=== PATIENT | female | born 1960 | race Caucasian/White ===

== ENCOUNTER → 2018-11-23 | Outpatient (CLI) | payer OTHER ==
--- NOTE | 2018-11-23 10:43 | US ---
EXAMINATION TYPE: US abdomen complete DATE OF EXAM: 11/23/2018 COMPARISON: US 12/05/11 CLINICAL HISTORY: R10.31 abd pain, R10.32. Abdominal pain when sitting. EXAM MEASUREMENTS: Liver Length: 15.2 cm Gallbladder Wall: 0.8 cm CBD: 0.5 cm Spleen: 7.9 cm Right Kidney: 10.0 x 4.8 x 3.9 cm Left Kidney: 10.1 x 4.8 x 4.8 cm Pancreas: Partially Obscured by bowel gas Liver: Increased attenuation Gallbladder: wnl Evidence for sonographic Ureña's sign: No CBD: Upper normal for size Spleen: wnl Right Kidney: wnl Left Kidney: wnl Upper IVC: wnl Abd Aorta: wnl The visualized liver is heterogeneously hyperechoic. Evaluation for focal masses is suboptimal due to the heterogeneity. Suspect mild diffuse fatty infiltration. The intrahepatic portion of the IVC and visualized abdominal aorta are within normal limits. There is no evidence of cholelithiasis. Common bile duct is unremarkable. The visualized portions of the pancreas are homogenous. The spleen is u nremarkable. Kidneys are symmetric and free of hydronephrosis. No suspicious renal lesions are seen . IMPRESSION: No acute finding identified to account for patient's symptoms
== END | disposition home or self-care (01) ==
LOC: RADUSWWP 07:42
PROVIDERS: ATTEND Internal Medicine
DX: R10.31 Right lower quadrant pain (principal); R10.32 Left lower quadrant pain
CPT/HCPCS: 76700

== ENCOUNTER → 2018-12-30 | Outpatient (CLI) | payer OTHER ==
--- NOTE | 2019-01-03 10:27 | MM ---
Reason for exam: screening (asymptomatic). Last mammogram was performed 8 years and 4 months ago. History: Patient is postmenopausal. Family history of breast cancer in sister. Physical Findings: A clinical breast exam by your physician is recommended on an annual basis and results should be correlated with mammographic findings. MG Screening Mammo w CAD Bilateral CC and MLO view(s) were taken. Prior study comparison: August 16, 2010, bilateral digital screening mammo w/CAD. August 17, 2009, bilateral digital screening mammogram. There are scattered fibroglandular densities. There is chronic nodularity in the right breast. No significant changes when compared with prior studies. ASSESSMENT: Benign, BI-RAD 2 RECOMMENDATION: Routine screening mammogram of both breasts in 1 year.
== END | disposition home or self-care (01) ==
LOC: RADMAMWWP 15:03
PROVIDERS: ATTEND Internal Medicine
DX: Z12.31 Encounter for screening mammogram for malignant neoplasm of breast (principal)
CPT/HCPCS: 77067

== ENCOUNTER → 2023-04-17 | Outpatient (CLI) | payer OTHER ==
--- NOTE | 2023-04-21 10:18 | MM ---
Reason for Exam: Screening (asymptomatic). Last mammogram was performed 4 year(s) and 4 month(s) ago. Patient History: Menarche at age 14. First Full-Term at age 21. Hysterectomy at age 37. Postmenopausal. Sister had breast cancer. Risk Values: Haley 5 year model risk: 2.8%. NCI Lifetime model risk: 12.9%. Prior Study Comparison: 08/17/2009 Bilateral Screening Mammogram, [facility]. 08/16/2010 Bilateral Screening Mammogram, [facility]. 12/30/2018 Bilateral Screening Mammogram, [facility]. Tissue Density: The breast tissue is almost entirely fat. Findings: Analyzed By CAD. There is no suspicious group of microcalcifications or new suspicious mass. Overall Assessment: Negative, BI-RAD 1 Management: Screening Mammogram of both breasts in [address] [facility] will attempt to contact patient to return for supplemental views and ultrasound if indicated. Patient should continue monthly self-breast exams. A clinical breast exam by your physician is recommended on an annual basis. This exam should not preclude additional follow-up of suspicious palpable abnormalities. Note on Haley scores and lifetime risk: 1. A Haley score greater than 3% is considered moderate risk. If this is the case, consider specialist referral to assess eligibility for a risk reducing agent. 2. If overall lifetime risk for the development of breast cancer is 20% or higher, the patient may qualify for future screening with alternating mammogram and breast MRI. Electronically signed and approved by: Ryan Baker DO
== END | disposition home or self-care (01) ==
LOC: RADMAMWWP 16:08
PROVIDERS: ATTEND Family Medicine
DX: Z12.31 Encounter for screening mammogram for malignant neoplasm of breast (principal); Z80.3 Family history of malignant neoplasm of breast; Z78.0 Asymptomatic menopausal state
CPT/HCPCS: 77067